=== PATIENT | male | born 1970 | race Two or more races ===

== ENCOUNTER 2022-07-08 06:43 | Day surgery (SDC) | payer MEDICAID ==
[~2022-07-08] VITALS: Ht 185.4 cm; Wt 115.7 kg
[~2022-07-08 06:43] MED LIST: APIX5TAB PO; ASPI-543 PO; CAR3125T PO; FURO20TA3 PO; PRAV20TA3 PO; SACU1TAB PO
[2022-07-08] MEDS ORDERED: MIDAZOLAM HCL 2MG/2ML 2ml VIAL (1mg/ml) IV ONE (07:30)
[2022-07-08] MEDS ORDERED: LIDOCAINE VISCOUS 2% 15ML UD MT ONE (07:30)
[2022-07-08] MEDS ORDERED: fentaNYL CITRATE 100 MCG/2 ML VL IV ONE (07:30)
[2022-07-08 08:46] VITALS: BP 139/102
[2022-07-08 09:01] VITALS: BP 117/81
[2022-07-08 09:16] VITALS: BP 122/85
[2022-07-08 09:30] VITALS: BP 119/89
== END 2022-07-08 09:36 | disposition home or self-care (01) ==
LOC: CATH 06:43
PROVIDERS: ATTEND Internal Medicine Cardiovascular Disease
DX: I08.1 Rheumatic disorders of both mitral and tricuspid valves (principal); Z20.822 Contact with and (suspected) exposure to COVID-19
CPT/HCPCS: 93312; J2250; J3010; U0003; 99152

== ENCOUNTER 2023-05-19 06:35 | Day surgery (SDC) | payer MEDICAID ==
[~2023-05-19] VITALS: Ht 185.4 cm; Wt 112.5 kg
[2023-05-19] MEDS ORDERED: LIDOCAINE 2%HCL (LOCAL ANESTH.) INJ 20ML MDV ONE (07:30)
[2023-05-19] MEDS ORDERED: IODIXANOL 320MG/ML 100ML BTL IV ONE ×2 (07:30→09:10)
[2023-05-19] MEDS ORDERED: ATOR20TA PO (08:23)
[2023-05-19] MEDS ORDERED: VERAPAMIL 2.5MG/ML INJ 2ML VIAL IV ONE (08:45)
[2023-05-19] MEDS ORDERED: ANGIOMAX 250 MG VIAL IV ONE (08:45)
[2023-05-19] MEDS ORDERED: HEPARIN SODIUM (PORCINE) 5000 UNITS/ML 1ML VIAL ONE (08:45)
[2023-05-19] MEDS ORDERED: SODIUM CHL 0.9% 0 ML ONE (08:46)
[2023-05-19] MEDS ORDERED: MIDAZOLAM HCL 2MG/2ML 2ml VIAL (1mg/ml) ONE (08:46)
[2023-05-19] MEDS ORDERED: fentaNYL CITRATE 100 MCG/2 ML VL ONE (08:46)
[2023-05-19] MEDS ORDERED: ATROPINE SULF 1 MG/10ml SYR ONE (09:15)
== END 2023-05-19 11:05 | disposition home or self-care (01) ==
LOC: CATH 06:35
PROVIDERS: ATTEND Internal Medicine Cardiovascular Disease
DX: R94.39 Abnormal result of other cardiovascular function study (principal); I13.0 Hypertensive heart and chronic kidney disease with heart failure and stage 1 through stage 4 chronic kidney disease, or unspecified chronic kidney disease; N18.9 Chronic kidney disease, unspecified; I50.9 Heart failure, unspecified; E78.5 Hyperlipidemia, unspecified; E66.01 Morbid (severe) obesity due to excess calories; Z68.32 Body mass index [BMI] 32.0-32.9, adult; Z87.891 Personal history of nicotine dependence; Z79.82 Long term (current) use of aspirin; Z79.899 Other long term (current) drug therapy
CPT/HCPCS: 93454; C1769; C1887; C1894; J1644; J2250; J3010; J7030; Q9967; 99152

== ENCOUNTER 2024-12-11 21:57 | Inpatient (IN) | payer MEDICAID ==
[~2024-12-11] VITALS: Ht 185.4 cm; Wt 115.5 kg
[~2024-12-11 21:57] MED LIST changes: -APIX5TAB PO; +ATOR20TA PO; -PRAV20TA3 PO
[2024-12-11 23:46] LABS: Hematocrit 47.1 % (41.0-53.0); Hemoglobin 16.0 g/dL (13.5-17.5); Mean Corpuscular Hemoglobin 31.8 pg (28.0-32.0); Mean Corpuscular Volume 93.6 fL (80.0-100.0); Nucleated Red Blood Cells % 0.1 %
[2024-12-11 23:50] LABS: Potassium 3.8 mmol/L (3.5-5.1); Sodium 141 mmol/L (136-145)
[2024-12-11 23:51] LABS: Anion Gap 8 (5-15); Calcium 9.5 mg/dL (8.7-10.4); Carbon Dioxide 23 mmol/L (20-31)
[2024-12-11 23:56] LABS: Chloride 110 mmol/L (98-107); Glucose 88 mg/dL (74-106)
[2024-12-11 23:59] LABS: BUN/Creatinine Ratio 10.0 (10.0-20.0); Blood Urea Nitrogen 13 mg/dL (9-23)
--- NOTE | 2024-12-12 00:12 | DVH ---
Procedure: CT ANGIO HEAD/Neck HISTORY: Right neck pain, headache, RUE weakness, dizziness Comparison Study: None Exam Date:12/11/2024 11:23 PM TECHNIQUE: CTA head without and with intravenous contrast. CTA neck with intravenous contrast. 3D jackie ge postprocessing was performed and images were used for interpretation and reporting. Radiation Dose : Dose-length product is 1814 mGy*cm FINDINGS: No acute intracranial process. No acute, large territory infarction or acute intracranial hemorrhage. No hydrocephalus. Parenchymal and ventricular size is unremarkable for age. No mass effect. No midli ne shift. Calvarium is intact. The aortic arch demonstrates a type I configuration. The ostia of the great vessels are patent. The re is conventional branching. The right CCA is patent. There is no significant stenosis of the right carotid bifurcation by NASCET criteria. The cervical right ICA is patent. The right MCA and right SUZAN appear patent. There is n o large vessel occlusion. The left CCA is patent. There is no significant stenoses at the left carotid bifurcation by NASCET c riteria. The cervical left ICA is patent. The left MCA and left SUZAN appear patent. There is no lar ge vessel occlusion. The right vertebral artery arises from the right subclavian artery. The left vertebral artery arises from the left subclavian artery. Both vertebral arteries are patent. Both vertebral arteries join to form the patent basilar artery. Both posterior cerebral arteries arise from the tip of the basila r. Both proximal SUBWAY TRAIN DRIVER segments are patent. There is no large vessel occlusion. There is no enhancing intracranial mass. Shotty cervical lymph nodes are identified. The thyroid gl and is heterogeneous. The lung apices demonstrate no pneumothorax. No destructive osseous abnormali ties identified. IMPRESSION: 1. No acute large vessel occlusions or high grade stenosis. No vascular malformations or dominant ane urysms. 2. No acute intracranial process. All CT scans at this medical facility are performed using dose modulation techniques as appropriate t o a performed exam including the following: Automated exposure control was utilized; adjustment of th e MA and/or KV according to patient size; and use of iterative reconstruction technique.
[2024-12-12] MEDS: IOHEXOL 350 MG/ML 100ML IJ ONE (00:31)
--- NOTE | 2024-12-12 01:06 | ED.PDOC ---
History of Present Illness HPI Comments 54-year-old male who presents for chief complaint of left neck pain, lightheadedness, dizziness, and upper extremity weakness. Endorsed unprovoked, atraumatic, and gradual onset of symptoms, which began on 12/09/24. Patient reports dropping items due to feeling weakness in his arms and becoming dizzy only whenever he stands. No recent travel, sick contact, or injuries alongside any further pertinent history. Only medical history of HTN. Denies any chest pain, shortness of breath, fever, chills, or further associated symptoms. REVIEW OF SYSTEMS: General: No fever, no chills, or fatigue HEENT: No sore throat, no earache, no congestion, no neck pain. Cardiac: Lightheadedness. No chest pain. No palpitations. Lungs: No shortness of breath, no cough. GI: No nausea, no vomiting, no diarrhea, no constipation, no abdominal pain : No dysuria, frequency, or urgency. No hematuria. Musculoskeletal: Left neck pain. no joint swelling, no extremity edema. Skin: No rash, no itching. Neuro: Weakness.. Dizziness. PHYSICAL EXAM: General: Awake, alert and oriented. No acute distress. Skin: Skin in warm, dry and intact. Appropriate color for ethnicity. HEENT: The head is normocephalic and atraumatic. Conjunctivae are clear without exudates or hemorrhage. Sclera is non-icteric. EOM are intact. No signs of nystagmus. Eyelids are normal in appearance without swelling or lesions. Oral mucosa is pink and moist Neck: The neck is supple with normal range of motion. No JVD. Cardiac: Heart rate and rhythm are normal. No murmurs, gallops, or rubs are auscultated. Respiratory: No signs of respiratory distress. Lung sounds are clear in all lobes bilaterally without rales, rhonchi, or wheezes. Abdominal: Abdomen is soft, non-tender without distention, guarding or rigidity. Bowel sounds are present and normoactive in all four quadrants. Extremities: Upper and lower extremities are atraumatic in appearance without deformity or edema. Neurological: The patient is awake, alert and oriented to person, place, and time with normal speech. Speech is clear. There is no facial asymmetry. Symmetric sensations to face and upper extremities. Normal bilateral upper extremity entrepreneurship program director strength. Psychiatric: Appropriate mood and affect. Good judgement and insight. Chief Complaint: Right Sided Weakness Time Seen by MD: 22:01 Reviewed Notes: Nurses Notes, Medications, Allergies Allergies: Coded Allergies: NO KNOWN ALLERGIES (Unverified , 07/04/22) Home Meds Reported Medications Atorvastatin Calcium (Lipitor) 20 Mg Tab, 1 TAB PO DAILY for cholesterol, #90 TAB 1 Refill 05/19/23 Furosemide (Furosemide) 20 Mg Tab, 20 MG PO DAILY for CHF 07/04/22 Sacubitril-Valsartan (Entresto 24-26 mg) 1 Tab Tab, 1 TAB PO BID for CHF, TAB 07/04/22 Carvedilol (Coreg) 3.125 Mg Tab, 1 TAB PO BID for CARDIAC 07/04/22 Aspirin (Aspir-Low) 81 Mg Tab, 81 MG PO DAILY for HEART 07/04/22 Information Source: Patient Mode of Arrival: Ambulatory Severity: Moderate Timing: Days Duration: Since onset Prehospital treatment: None Past Medical History PAST MEDICAL HISTORY: HTN Surgical History: Denies all surgeries Social History Smoker: Non-Smoker Alcohol: Denies ETOH Use Drugs: Denies Drug Use Lives In: Home Was a procedure done? Was a procedure done?: No Differential Dx Considerations may include: Differential diagnoses considered include but are not limited to temporal arteritis, acute angle closure glaucoma, encephalitis, bacterial meningitis, carbon monoxide poisoning, posttraumatic headache, SAH, subdural hematoma, cervical artery dissection, venous sinus thrombosis, CVA, migraine headache, cluster headache, tension headache, TMJ disorder, frontal sinusitis, cervical spondylosis, intracranial mass, pituitary apoplexy. X-Ray, Labs, Meds, VS Vital Signs Date Time Temp Pulse Resp B/P (MAP) Pulse Ox O2 Delivery O2 Flow Rate FiO2 12/12/24 01:19 98.9 80 16 119/83 (95) 97 98.9 12/11/24 22:00 98.2 68 20 136/80 98 98.2 Lab Test 12/11/24 23:04 Range/Units White Blood Count 14.2 H 4.4-10.8 10^3/uL Red Blood Count 5.03 4.5-5.90 10^6/uL Hemoglobin 16.0 13.5-17.5 g/dL Hematocrit 47.1 41.0-53.0 % Mean Corpuscular Volume 93.6 80.0-100.0 fL Mean Corpuscular Hemoglobin 31.8 28.0-32.0 pg Mean Corpuscular Hemoglobin Concent 34.0 32.0-36.0 g/dL Red Cell Distribution Width 13.6 11.8-14.3 % Platelet Count 209 140-450 10^3/uL Mean Platelet Volume 8.5 6.9-10.8 fL Neutrophils (%) (Auto) 63.1 37.0-80.0 % Lymphocytes (%) (Auto) 29.1 10.0-50.0 % Monocytes (%) (Auto) 7.2 0.0-12.0 % Eosinophils (%) (Auto) 0.5 0.0-7.0 % Basophils (%) (Auto) 0.1 0.0-2.0 % Neutrophils # (Auto) 8.9 H 1.6-8.6 10 ^3/uL Lymphocytes # (Auto) 4.1 0.4-5.4 10 ^3/uL Monocytes # (Auto) 1.0 0-1.3 10 ^3/uL Eosinophils # (Auto) 0.1 0-0.8 10 ^3/uL Basophils # (Auto) 0 0-0.2 10 ^3/uL Nucleated Red Blood Cells 0.1 % Sodium Level 141 136-145 mmol/L Potassium Level 3.8 3.5-5.1 mmol/L Chloride Level 110 H 98-107 mmol/L Carbon Dioxide Level 23 20-31 mmol/L Anion Gap 8 5-15 Blood Urea Nitrogen 13 9-23 mg/dL Creatinine 1.30 0.700-1.30 mg/dL Glomerular Filtration Rate Calc 66 >90 mL/min BUN/Creatinine Ratio 10.0 10.0-20.0 Serum Glucose 88 74-106 mg/dL Calcium Level 9.5 8.7-10.4 mg/dL Troponin I High Sensitivity 30 </=54 ng/L Current Medications Medications (Trade) Dose Ordered Sig/Richelle Route Start Time Stop Time Status Last Admin Lidocaine HCl (Xylocaine 2% Viscous) 3 ml ONCE ONCE MT 12/12/24 02:30 12/12/24 02:37 DC 12/12/24 02:57 Sodium Chloride 1,000 ml @ 60 mls/hr [id number] IV 12/12/24 02:30 12/12/24 02:58 [facility] [address] [facility] [address] Ph: [phone] DIAGNOSTIC IMAGING Diagnostic Imaging Report : [id number] Signed PATIENT: EVER GALICIA ACCT: [id number] UNIT: [id number] : 1970 LOC: ER ROOM / BED: / AGE / SEX: 54 / M ADM STATUS: REG ER SERVICE 2250 ORDERING PHYSICIAN: GITA MOULTON MD PROCEDURE(s): [place]neck - ANGIO HEAD/Neck REASON: Right neck pain, headache, RUE weakness, dizziness ORDER NUMBER(s): [id number], ACCESSION NUMBER(s): [id number] Procedure: CT ANGIO HEAD/Neck HISTORY: Right neck pain, headache, RUE weakness, dizziness Comparison Study: None Exam Date:12/11/2024 11:23 PM TECHNIQUE: CTA head without and with intravenous contrast. CTA neck with intravenous contrast. 3D image postprocessing was performed and images were used for interpretation and reporting. Radiation Dose : Dose-length product is 1814 mGy*cm FINDINGS: No acute intracranial process. No acute, large territory infarction or acute intracranial hemorrhage. No hydrocephalus. Parenchymal and ventricular size is unremarkable for age. No mass effect. No midline shift. Calvarium is intact. The aortic arch demonstrates a type I configuration. The ostia of the great vessels are patent. There is conventional branching. The right CCA is patent. There is no significant stenosis of the right carotid bifurcation by NASCET criteria. The cervical right ICA is patent. The right MCA and right SUZAN appear patent. There is no large vessel occlusion. The left CCA is patent. There is no significant stenoses at the left carotid bifurcation by NASCET criteria. The cervical left ICA is patent. The left MCA and left SUZAN appear patent. There is no large vessel occlusion. The right vertebral artery arises from the right subclavian artery. The left vertebral artery arises from the left subclavian artery. Both vertebral arteries are patent. Both vertebral arteries join to form the patent basilar a rtery. Both posterior cerebral arteries arise from the tip of the basilar. Both proximal TOOL CHASER segments are patent. There is no large vessel occlusion. There is no enhancing intracranial mass. Shotty cervical lymph nodes are identified. The thyroid gland is heterogeneous. The lung apices demonstrate no pneumothorax. No destructive osseous abnormalities identified. IMPRESSION: 1. No acute large vessel occlusions or high grade stenosis. No vascular malformations or dominant aneurysms. 2. No acute intracranial process. All CT scans at this medical facility are performed using dose modulation techniques as appropriate to a performed exam including the following: Automated exposure control was utilized; adjustment of the MA and/or KV according to margy ent size; and use of iterative reconstruction technique. ATED BY: DYLAN GONZALEZ MD DICTATED DATE/TIME: 12/12/248 SIGNED BY: DYLAN GONZALEZ MD SIGNED DATE/TIME: 12/12/248 CC: Time of 1ST Reevaluation: 22:31 Reevaluation 1ST: Unchanged Patient Education/Counseling: Other (need for admission ) Family Education/Counseling: No Family Present SEPSIS Sepsis Screen Date sepsis recognized/suspect: Dec 11, 2024 Time Sepsis recognized/suspect: 2204 Recent Procedure: No On Antibiotic Therapy: No Respiratory Rate >20: No Heart Rate >90: No Temp<36 C (96.8 F) or >38.3 C: No SBP <90 or MAP <65 mmHG: No New Acute Mental Status Change: No Is the patient on CPAP, BIPAP,: No Physician Orders Angio Head/Neck (12/11/24 22:50) Electrocardigram (12/11/24 22:50) Saline Lock (12/11/24 22:51) Amoxicillin/Clavulanate Tablet (Augmenti (12/12/24 03:00) Vital Signs Date Time Temp Pulse Resp B/P (MAP) Pulse Ox O2 Delivery O2 Flow Rate FiO2 12/12/24 01:19 98.9 80 16 119/83 (95) 97 98.9 12/11/24 22:00 98.2 68 20 136/80 98 98.2 Laboratory Tests Test 12/11/24 23:04 White Blood Count 14.2 10^3/uL (4.4-10.8) H Medications Medications Dose Ordered Sig/Richelle Route Start Time Stop Time Status Last Admin Dose Admin Lidocaine HCl 3 ml ONCE ONCE MT 12/12/24 02:30 12/12/24 02:37 DC 12/12/24 02:57 Sodium Chloride 1,000 ml @ 60 mls/hr [id number] IV 12/12/24 02:30 12/12/24 02:58 Departure 1 Departure Time of Disposition: 01:13 Impression: Primary Impression: Stroke-like symptoms Additional Impression: Right sided weakness Disposition: ADMITTED INPATIENT Condition: Stable Comments MDM: 54-year-old male with reported right-sided weakness, for the past 2 days difficulty speaking, pain in the right side of the neck, dropping things due to right hand weakness. CTA negative for acute LVO. Possible TIA. Patient admitted for further treatment, evaluation, observation and specialist consultation. Extensive evaluation was performed in attempt to identify or rule out: (See differential diagnosis section) The following tests were ordered, and results were reviewed by me and discussed with patient: (See diagnostic results section) The following test were independently interpreted by me: N/A I reviewed the following notes from the pt's past medical encounters: N/A Additional information was gathered from interviewing the following independent historians: N/A Decision regarding hospitalization or escalation of hospital level of care: Risk and benefits of admission for further treatment of patient's condition was considered. Due to patient's current clinical condition, high risk of decline and poor outcome if discharged and need for further inpatient management and monitoring, patient will be admitted to the hospital. Critical Care Note Critical Care Time?: No Stability Stability form required: No Heart Score Heart Score: Heart Score Response (Comments) Value History N/A 0 EKG N/A 0 Age N/A 0 Risk Factors N/A 0 Troponin N/A 0 Total 0 I personally scribed for GITA MOULTON MD ([email or web address]) on 12/12/24 at 01:06. Electronically submitted by Cipriano Bustos ([email or web address]). I personally scribed for GITA MOULTON MD ([email or web address]) on 12/12/24 at 03:41. Electronically submitted by Cipriano Bustos ([email or web address]). GITA MOULTON MD Dec 12, 2024 01:06
[2024-12-12 01:19] VITALS: TEMP 98.9
--- NOTE | 2024-12-12 02:55 | DVHHPRES ---
History of Present Illness Resident Creating Document: ANGELES AVILEZ RESIDENT History of Present Illness 54-year-old male presents to the ER with a history of right ear pain and right- sided neck swelling, difficulty swallowing and hoarseness of voice that started gradually 2 days back. The patient was noncooperative and very frustrated due to the long wait and severe pain. Patient denies any weakness, shortness of breathe, chest pain, or any other complaints. Past medical history: From previous records, Systolic heart failure on GDMT, bilateral coronary angiogram performed Rest of the history taking is impaired because of patient's noncooperation Code status: Full code Review of Systems ENT: Ear pain, Throat pain, Throat swelling Allergies: Coded Allergies: NO KNOWN ALLERGIES (Unverified , 07/04/22) Medications Current Medications Medications Dose Ordered Sig/Richelle Route Start Time Stop Time Status Last Admin Dose Admin Amoxicillin/ Clavulanate Potassium 875 mg Q12H PO 12/12/24 03:00 Sodium Chloride 1,000 ml @ 60 mls/hr [id number] IV 12/12/24 02:30 Exam Vital Signs Vital Signs Date Time Temp Pulse Resp B/P (MAP) Pulse Ox O2 Delivery O2 Flow Rate FiO2 12/12/24 01:19 98.9 80 16 119/83 (95) 97 98.9 Exam Pt is lying on bed General Appearance: Alert, Oriented X3, Cooperative, Mild distress HEENT: Right ear otoscopic examination: No tenderness in the external ears, redness and condition in the tympanic membrane, no discharge, no purulence. Left ear: Normal Atraumatic, Mucous membranes moist/pink Tongue swelling present, tonsils not visualized Respiratory: Clear to auscultation, Normal air movement, No added sounds Cardiovascular: Regular rate, Normal S1, Normal S2, No murmurs Abdominal/ : Active bowel sounds, Soft, no distention, no tenderness Extremities: No edema, Normal pulses, No tenderness/swelling Skin: No Significant rash, except past surgical scars Neuro: Normal speech, sensorimotor deficits none Psych/Mental Status: Mental status NL, Mood NL Nurse was there as sales special agent during examination Labs/Xrays Labs Test 12/11/24 23:04 Range/Units White Blood Count 14.2 H 4.4-10.8 10^3/uL Red Blood Count 5.03 4.5-5.90 10^6/uL Hemoglobin 16.0 13.5-17.5 g/dL Hematocrit 47.1 41.0-53.0 % Mean Corpuscular Volume 93.6 80.0-100.0 fL Mean Corpuscular Hemoglobin 31.8 28.0-32.0 pg Mean Corpuscular Hemoglobin Concent 34.0 32.0-36.0 g/dL Red Cell Distribution Width 13.6 11.8-14.3 % Platelet Count 209 140-450 10^3/uL Mean Platelet Volume 8.5 6.9-10.8 fL Neutrophils (%) (Auto) 63.1 37.0-80.0 % Lymphocytes (%) (Auto) 29.1 10.0-50.0 % Monocytes (%) (Auto) 7.2 0.0-12.0 % Eosinophils (%) (Auto) 0.5 0.0-7.0 % Basophils (%) (Auto) 0.1 0.0-2.0 % Neutrophils # (Auto) 8.9 H 1.6-8.6 10 ^3/uL Lymphocytes # (Auto) 4.1 0.4-5.4 10 ^3/uL Monocytes # (Auto) 1.0 0-1.3 10 ^3/uL Eosinophils # (Auto) 0.1 0-0.8 10 ^3/uL Basophils # (Auto) 0 0-0.2 10 ^3/uL Nucleated Red Blood Cells 0.1 % Sodium Level 141 136-145 mmol/L Potassium Level 3.8 3.5-5.1 mmol/L Chloride Level 110 H 98-107 mmol/L Carbon Dioxide Level 23 20-31 mmol/L Anion Gap 8 5-15 Blood Urea Nitrogen 13 9-23 mg/dL Creatinine 1.30 0.700-1.30 mg/dL Glomerular Filtration Rate Calc 66 >90 mL/min BUN/Creatinine Ratio 10.0 10.0-20.0 Serum Glucose 88 74-106 mg/dL Calcium Level 9.5 8.7-10.4 mg/dL Troponin I High Sensitivity 30 </=54 ng/L SEPSIS Sepsis Screen Date sepsis recognized/suspect: Dec 11, 2024 Time Sepsis recognized/suspect: 2204 Recent Procedure: No On Antibiotic Therapy: No Respiratory Rate >20: No Heart Rate >90: No Temp<36 C (96.8 F) or >38.3 C: No SBP <90 or MAP <65 mmHG: No New Acute Mental Status Change: No Is the patient on CPAP, BIPAP,: No Physician Orders Angio Head/Neck (12/11/24 22:50) Electrocardigram (12/11/24 22:50) Saline Lock (12/11/24 22:51) Amoxicillin/Clavulanate Tablet (Augmenti (12/12/24 03:00) Admit (12/12/24 02:30) Allergies (12/12/24 02:30) Sodium Chloride 0.9% (12/12/24 02:30) Complete Blood Count (12/13/24 04:00) Comprehensive Metabolic Panel (12/13/24 04:00) Clear Liq Diet (12/12/24 Breakfast) Notify Md Of Changes From Base (12/12/24 02:30) Vital Signs Date Time Temp Pulse Resp B/P (MAP) Pulse Ox O2 Delivery O2 Flow Rate FiO2 12/12/24 01:19 98.9 80 16 119/83 (95) 97 98.9 12/11/24 22:00 98.2 68 20 136/80 98 98.2 Laboratory Tests Test 12/11/24 23:04 White Blood Count 14.2 10^3/uL (4.4-10.8) H Assessment/Plan Assessment/Plan Acute pharyngitis and otitis media -Augmentin -topical lidocaine -injection Toradol -IV fluid normal saline -monitor signs symptoms of respiratory distress. Head CT was performed initially due to concern for weakness. Head CT revealed no intracranial abnormality NSTEMI type 2 Troponin 30 EKG: No ischemic changes Management of the underlying condition (infection). GI prophylaxis: Pantoprazole DVT prophylaxis: Not indicated Diet: Clear liquid Goals of care discussed with the patient for more than 27 minutes: Full code status Case discussed with Dr. Kamara , patient and RN Plan discussed with: Patient, Other (RN) My Orders Orders - RAGHAV,ANGELES RESIDENT Procedure Category Date Status Time Admit ADMIT 12/12/24 Transmitted 02:30 Allergies NANCY 12/12/24 In Process 02:30 Sodium Chloride 0.9% PHA 12/12/24 In Process 02:30 Complete Blood Count LAB 12/13/24 Verified 04:00 Comprehensive LAB 12/13/24 Verified Metabolic Panel 04:00 Clear Liq Diet DIET 12/12/24 Transmitted Breakfast Notify Md Of Changes NANCY 12/12/24 In Process From Base 02:30 Date of Service: Dec 12, 2024 Billing Provider: LEIGHANN KAMARA MD Common Visit Codes: [id number] INP/OBS CARE (HIGH) ANGELES AVILEZ RESIDENT Dec 12, 2024 02:55 LEIGHANN KAMARA MD Dec 13, 2024 07:57
[2024-12-12] MEDS: LIDOCAINE VISCOUS 2% 15ML UD MT ONE (02:57)
[2024-12-12] MEDS: AMOXICILLIN/CLAVUL 875 MG TAB PO SCH (02:57)
[2024-12-12] MEDS: KETOROLAC TROMETH 30 MG/ML 1ML VIAL IV ONE (02:57)
[2024-12-12] MEDS: SODIUM CHLORIDE 0.9% 1,000 ML IV SCH (02:58)
[2024-12-12] MEDS ORDERED: KETOROLAC TROMETH 30 MG/ML 1ML VIAL IV PRN (05:45)
[2024-12-12] MEDS: SACUBITRIL-VALSARTAN 24mg/26mg TAB PO SCH (10:00)
[2024-12-12] MEDS: CARVEDILOL 3.125 MG TAB PO SCH (10:00)
[2024-12-12] MEDS: ASPirin-EC 81 mg tab PO SCH (10:57)
[2024-12-12] MEDS: FUROSEMIDE 20 MG TAB PO SCH (10:58)
[2024-12-12] MEDS: APIXABAN 5 MG TAB PO SCH (10:58)
[2024-12-12] MEDS: PANTOPRAZOLE 40 MG/10 ML VIAL INJ IV SCH (10:59)
[2024-12-12 11:09] VITALS: BP 118/71; PULSE 71; RESP 18; O2SAT 96
[2024-12-12] MEDS: cefTRIAXone 1GM/50ML D5W 50 ML IV ONE (14:14)
--- NOTE | 2024-12-12 14:36 | ECG ---
[facility] Test Date: 2024-12-12 Test Time: 05:08:28 Pat Name: EVER GALICIA Department: Room: [address] [place] [address] A Gender: M Transfer Operator: : 1970 Requested By: GITA MOULTON Order Number: [id number] Reading MD: Jose Antonio Jett Measurements Intervals Valders Rate: 67 P: 43 ID: [id number] QRS: 32 QRSD: 96 T: -41 QT: 472 QTc: 499 Interpretive Statements Sinus rhythm Borderline T abnormalities, diffuse leads Borderline prolonged QT interval Electronically Signed On 12-12-2024 18:26:16 PDT by Jose Antonio Jett Please click the below link to view image of tracing.
--- NOTE | 2024-12-12 15:46 | DVHDSRES ---
Discharge Summary Date of Admission Resident Creating Document: BARBARA QUEZADA RESIDENT Dec 12, 2024 at 02:30 Date of Discharge: Dec 12, 2024 Admitting Diagnosis acute pharyngitis Labs/Diagnostic Data: Laboratory Results Test 12/11/24 23:04 White Blood Count 14.2 10^3/uL (4.4-10.8) Red Blood Count 5.03 10^6/uL (4.5-5.90) Hemoglobin 16.0 g/dL (13.5-17.5) Hematocrit 47.1 % (41.0-53.0) Mean Corpuscular Volume 93.6 fL (80.0-100.0) Mean Corpuscular Hemoglobin 31.8 pg (28.0-32.0) Mean Corpuscular Hemoglobin Concent 34.0 g/dL (32.0-36.0) Red Cell Distribution Width 13.6 % (11.8-14.3) Platelet Count 209 10^3/uL (140-450) Mean Platelet Volume 8.5 fL (6.9-10.8) Neutrophils (%) (Auto) 63.1 % (37.0-80.0) Lymphocytes (%) (Auto) 29.1 % (10.0-50.0) Monocytes (%) (Auto) 7.2 % (0.0-12.0) Eosinophils (%) (Auto) 0.5 % (0.0-7.0) Basophils (%) (Auto) 0.1 % (0.0-2.0) Neutrophils # (Auto) 8.9 10 ^3/uL (1.6-8.6) Lymphocytes # (Auto) 4.1 10 ^3/uL (0.4-5.4) Monocytes # (Auto) 1.0 10 ^3/uL (0-1.3) Eosinophils # (Auto) 0.1 10 ^3/uL (0-0.8) Basophils # (Auto) 0 10 ^3/uL (0-0.2) Nucleated Red Blood Cells 0.1 % Sodium Level 141 mmol/L (136-145) Potassium Level 3.8 mmol/L (3.5-5.1) Chloride Level 110 mmol/L (98-107) Carbon Dioxide Level 23 mmol/L (20-31) Anion Gap 8 (5-15) Blood Urea Nitrogen 13 mg/dL (9-23) Creatinine 1.30 mg/dL (0.700-1.30) Glomerular Filtration Rate Calc 66 mL/min (>90) BUN/Creatinine Ratio 10.0 (10.0-20.0) Serum Glucose 88 mg/dL (74-106) Calcium Level 9.5 mg/dL (8.7-10.4) Troponin I High Sensitivity 30 ng/L (</=54) Other Laboratory Tests 12/11/24 23:04 Brief Hx & Hospital Course: 54-year-old male presented to the ER with a history of pain behind the right ear which started 2 days back. It was intense pain radiating to the jaw. It was associated with chills and right-sided neck swelling . The patient also experienced difficulty and pain on swallowing and hoarseness of voice that started gradually over the last 2 days. There was no discharge from the ear or ringing in the ears. Patient denies any weakness, shortness of breath, chest pain, or any other complaints. His TLC was 14.2 and all other labs were in the normal range. CT head and neck showed inflammation of the tonsils. Patient was started on IV ceftriaxone, however, patient left against medical advice before further evaluation and management could be completed. Past medical history: From previous records, Systolic heart failure on GDMT, bilateral coronary angiogram performed 6 months ago Rest of the history taking is impaired because of patient's noncooperation. Code status: Full code Past surgical history: Home medications: aspirin, lipitor, carvedilol, furosemide, entresto Social & Personal history: lives at home with family Allergies: unknown Condition at Discharge: Undetermined Final Diagnosis/Problems List #acute tonsillitis with inflamed tonsils seen on CT #acute otitis media #acute pharyngitis #systolic heart failure,possible exacerbation #hypertension Discharge Disposition: AMA Discharge Instruct/Medications Scheduled Aspirin (Aspir-Low), 81 MG PO DAILY, (Reported) Atorvastatin Calcium (Lipitor), 1 TAB PO DAILY, (Reported) Carvedilol (Coreg), 1 TAB PO BID, (Reported) Furosemide (Furosemide), 20 MG PO DAILY, (Reported) Sacubitril-Valsartan (Entresto 24-26 mg), 1 TAB PO BID, (Reported) Discharge Statement: "Patient was advised to return to the ER or call 911 if any headaches, dizziness, shortness of breath, chest pain, abdominal pain, bleeding, fevers, or worsening of medical condition. Patient was counseled about treatment plan, medications, possible side effects, patientverbalized understanding. All questions were answered to the best of my ability. This discharge took greater then 30 minutes in planning, reviewing documentation, counseling the patient, and discussing with other team members." BARBARA QUEZADA RESIDENT Dec 12, 2024 15:46 JENNI WIGGINS RESIDENT Dec 12, 2024 19:38
[2024-12-12] MEDS ORDERED: ATORVASTATIN 20 MG TAB PO SCH (22:00)
[2024-12-13] MEDS ORDERED: cefTRIAXone 1GM/50ML D5W 50 ML IV SCH (09:00)
== END 2024-12-12 14:27 | disposition left against medical advice (07) | DRG 113 ==
LOC: ER 21:57 → OVERFLOW 12-12 02:30
PROVIDERS: ADMIT Internal Medicine Geriatric Medicine; ATTEND Internal Medicine Geriatric Medicine
DX: H66.91 Otitis media, unspecified, right ear (principal); I50.23 Acute on chronic systolic (congestive) heart failure; I21.A1 Myocardial infarction type 2; Z53.29 Procedure and treatment not carried out because of patient's decision for other reasons; J02.9 Acute pharyngitis, unspecified; Z79.82 Long term (current) use of aspirin; Z79.899 Other long term (current) drug therapy
CPT/HCPCS: 36415; 70496; 70498; 80048; 84484; 85025; 93005; 96365; 96375; G0378; J1885; J2470